=== PATIENT | female | born 1980 | race Two or more races ===

== ENCOUNTER 2018-09-04 04:46 | Day surgery (SDC) | payer OTHER ==
[~2018-09-04] VITALS: Ht 160 cm; Wt 83.0 kg
== END 2018-09-04 13:00 | disposition home or self-care (01) ==
LOC: ER 04:46 → CIR.AMB 07:00 → ER 10:11 → SEC-K 10:11 → O/R 10:11 → EDSTATUS 11:15 → O/R 12:12 → SEC-K 12:12 → O/R 13:00 → CIR.AMB 13:00
DX: O03.4 Incomplete spontaneous abortion without complication (principal); D62 Acute posthemorrhagic anemia
CPT/HCPCS: 59812; 86904; 86922; 36430; P9021